=== PATIENT | female | born 1985 | race Caucasian/White ===

== ENCOUNTER 2016-09-20 19:22 | Emergency (ER) | payer OTHER ==
[2016-09-20] MEDS ORDERED: oxyCODONE/ACET 5/325 Prepack 4 PO STA (20:42)
[2016-09-20] MEDS ORDERED: oxyCOD/ACETAMIN 5 MG/325 MG TABLET PO STA (20:42)
[2016-09-20] MEDS ORDERED: oxyCODONE/ACET 5/325 Prepack 4 PO ONE (20:48)
[2016-09-20] MEDS ORDERED: oxyCOD/ACETAMIN 5 MG/325 MG TABLET PO ONE (20:48)
== END 2016-09-20 21:25 | disposition home or self-care (01) ==
DX: S89.91XA Unspecified injury of right lower leg, initial encounter (principal); X50.1XXA Overexertion from prolonged static or awkward postures, initial encounter; Y93.89 Activity, other specified; Y92.009 Unspecified place in unspecified non-institutional (private) residence as the place of occurrence of the external cause; Y99.8 Other external cause status; Z87.891 Personal history of nicotine dependence
CPT/HCPCS: 73564; 99283; A9270